=== PATIENT | female | born 1975 | race Caucasian/White ===

== ENCOUNTER 2018-06-26 07:40 | Inpatient (IN) | payer OTHER ==
[~2018-06-26 07:40] MED LIST: DESFLURANE 15 MIN; DEXAMETHASONE 4 MG/ML 5 ML INJ
[2018-06-26] MEDS ORDERED: GLYCOPYRROLATE 0.4 MG INJ (09:40)
[2018-06-26] MEDS ORDERED: ROCURONIUM 50 MG INJ (09:40)
[2018-06-26] MEDS ORDERED: CEFAZOLIN 1 GM INJ (09:40)
[2018-06-26] MEDS ORDERED: PROPOFOL 20 ML (09:40)
[2018-06-26] MEDS ORDERED: NEOSTIGMINE 3 MG/3 ML SYRINGE (09:40)
[2018-06-26] MEDS ORDERED: MIDAZOLAM 1 MG/ML 2 ML INJ (09:42)
[2018-06-26] MEDS ORDERED: ONDANSETRON 4 MG INJ (09:42)
[2018-06-26] MEDS ORDERED: FENTAnyl 50 MCG/ML VIAL (09:42)
[2018-06-26] MEDS ORDERED: FENTAnyl 50 MCG/ML VIAL IV ×2 (10:00)
[2018-06-26] MEDS ORDERED: hydrALAzine 20 MG INJ IV (10:00)
[2018-06-26] MEDS ORDERED: OXYCODONE/ACETAMINOPHEN (5/325) TAB PO ×2 (10:00)
[2018-06-26] MEDS ORDERED: HYDROmorphONE 1 MG/5 ML IV SYRINGE IV ×2 (10:00)
[2018-06-26] MEDS ORDERED: IPRATROPIUM (NEB) 0.5 MG/2.5 ML AMP HHN (10:00)
[2018-06-26] MEDS ORDERED: MEPERIDINE 25 MG INJ IV (10:00)
[2018-06-26] MEDS ORDERED: DIPHENHYDRAMINE 50 MG INJ IV (10:00)
[2018-06-26] MEDS ORDERED: ALBUTEROL 0.083% (NEB) 2.5 MG/3 ML AMP HHN (10:00)
[2018-06-26] MEDS ORDERED: ONDANSETRON 4 MG INJ IV (10:00)
[2018-06-26] MEDS ORDERED: EPHEDrine SULFATE 50 MG/5 ML SYG IV (10:00)
[2018-06-26] MEDS ORDERED: LABETALOL HCL 20MG INJ IV (10:00)
[2018-06-26] MEDS ORDERED: TRIMETHOBENZAMIDE 100 MG/ML VIAL IM (10:00)
[2018-06-26] MEDS ORDERED: METOCLOPRAMIDE 10 MG INJ (10:23)
[2018-06-26] MEDS: MIDAZOLAM 1 MG/ML 2 ML INJ IV (10:25)
[2018-06-26] MEDS: METOCLOPRAMIDE 10 MG INJ IV (10:37)
[2018-06-26] MEDS: FENTAnyl 50 MCG/ML VIAL IV (10:54)
[2018-06-26] MEDS: HYDROmorphONE 1 MG/5 ML IV SYRINGE IV ×5 (11:32→13:42)
[2018-06-26] MEDS ORDERED: NACL 0.9% 3 ML SYG IV (12:00)
[2018-06-26] MEDS ORDERED: GLUCOSE GEL 15 GRAM TUBE BUCCAL (12:30)
[2018-06-26] MEDS ORDERED: GLUCOSE GEL 15 GRAM TUBE PO ×2 (12:30)
[2018-06-26] MEDS ORDERED: DEXTROSE 50% 50 ML SYRINGE IV ×2 (12:30)
[2018-06-26] MEDS ORDERED: GLUCAGON 1 MG INJ IM (12:30)
[2018-06-26 16:24] LABS: ADD MAN DIFF? NO
[2018-06-26 16:26] LABS: WHITE BLOOD COUNT 12.9 10^3/ul (4.8-10.8)
[2018-06-26 16:26] LABS: BASOPHILS % 0.2 % (0.0-2.0); HEMATOCRIT 41.1 % (37.0-47.0); HEMOGLOBIN 13.2 g/dl (12.0-16.0); LYMPHOCYTES # 1.1 10^3/ul (0.8-2.9); LYMPHOCYTES % 8.2 % (15.0-51.0); MEAN CORPUSCULAR HGB CONC 32.1 g/dl (32.0-37.0); MEAN CORPUSCULAR VOLUME 87.1 fl (82.0-101.0); MEAN PLATELET VOLUME 9.4 fl (7.4-10.4); MONOCYTE # 0.1 10^3/ul (0.3-0.9); MONOCYTES % 0.5 % (0.0-11.0); NEUTROPHIL # 11.6 10^3/ul (1.6-7.5); NEUTROPHILS % 90.6 % (39.0-77.0); PLATELET COUNT 345 10^3/UL (140-415); RED BLOOD COUNT 4.72 10^6/ul (4.20-5.40); RED CELL DISTRIBUTION WIDTH 12.5 % (11.5-14.5)
[2018-06-26] MEDS: ACCU-CHEK XX ×2 (16:32→20:33)
[2018-06-26 16:48] LABS: ALANINE AMINOTRANSFERASE 103 IU/L (13-69); ALBUMIN 3.9 g/dl (3.3-4.9); ALBUMIN/GLOBULIN RATIO 1.11; ALKALINE PHOSPHATASE 128 IU/L (42-121); ANION GAP 9 (5-13); ASPARTATE AMINO TRANSFERASE 209 IU/L (15-46); BILIRUBIN,INDIRECT 1.5 mg/dl (0-1.1); BILIRUBIN,TOTAL 1.5 mg/dl (0.2-1.3); BLOOD UREA NITROGEN 14 mg/dl (7-20); CARBON DIOXIDE 24 mmol/L (21-31); CHLORIDE 107 mmol/L (97-110); CREATININE 0.62 mg/dl (0.44-1.00); Estimated GFR > 60 mL/min (>60); GLUCOSE 163 mg/dl (70-220); POTASSIUM 4.3 mmol/L (3.5-5.1); SODIUM 140 mmol/L (135-144); TOTAL PROTEIN 7.4 g/dl (6.1-8.1)
[2018-06-26] MEDS: LEVETIRACETAM 500 MG TAB PO (20:32)
[2018-06-27 06:34] LABS: HEMOGLOBIN A1C 5.8 % (0-5.9)
[2018-06-27] MEDS: morphine 4 MG/ML VIAL IV ×2 (07:36→12:47)
[2018-06-27] MEDS: ACCU-CHEK XX ×3 (08:20→17:19)
[2018-06-27] MEDS: metFORMIN 500 MG TAB PO (08:48)
[2018-06-27] MEDS: LEVETIRACETAM 500 MG TAB PO (08:49)
[2018-06-27] MEDS: LISINOPRIL 20 MG TAB PO (08:49)
== END 2018-06-27 17:24 | disposition home or self-care (01) | DRG 101 ==
LOC: GIL 07:40 → SDS 07:40 → GIL 11:55 → REC 11:56 → TEL 15:18
PROVIDERS: Internal Medicine Gastroenterology
PROC: 0FPB8DZ Removal of Intraluminal Device from Hepatobiliary Duct, Via Natural or Artificial Opening Endoscopic (ICD-10-PCS; principal; 2018-06-26 09:36)
DX: G40.909 Epilepsy, unspecified, not intractable, without status epilepticus (principal); I10 Essential (primary) hypertension; E11.9 Type 2 diabetes mellitus without complications; E88.81 Metabolic syndrome and other insulin resistance; Z46.89 Encounter for fitting and adjustment of other specified devices; Z87.19 Personal history of other diseases of the digestive system
CPT/HCPCS: 70450; 74330; 80053; 82962; 83036; 85025

== ENCOUNTER 2018-11-13 09:36 | Inpatient (IN) | payer OTHER ==
[2018-11-13] MEDS: LIDOCAINE 4% SOLUTION 50 ML BTL (11:15)
[2018-11-13] MEDS: FENTAnyl 50 MCG/ML VIAL (12:38)
[2018-11-13] MEDS: MIDAZOLAM 1 MG/ML 2 ML INJ ×2 (12:38)
[2018-11-13] MEDS ORDERED: NACL 0.9% 3 ML SYG IV (14:30)
[2018-11-13] MEDS ORDERED: ZOLPIDEM 5 MG TAB PO (14:30)
[2018-11-13] MEDS ORDERED: DOCUSATE SODIUM 100 MG CAP PO (14:30)
[2018-11-13] MEDS ORDERED: MAGNESIUM HYDROXIDE 30ML CUP PO (14:30)
[2018-11-13] MEDS: NS + KCL 20 MEQ 1,000 ML IV (14:49)
[2018-11-13] MEDS: LEVETIRACETAM 1500 MG (PMX) 100 ML IVPB ×2 (15:07→22:28)
[2018-11-13] MEDS ORDERED: MIDAZOLAM 1 MG/ML 2 ML INJ (15:08)
[2018-11-13] MEDS: DEXTROSE 50% 50 ML SYRINGE IV (15:23)
[2018-11-13 15:42] LABS: ADD MAN DIFF? NO
[2018-11-13 15:43] LABS: BASOPHILS % 0.1 % (0.0-2.0); EOSINOPHILS # 0.3 10^3/ul (0.0-0.5); EOSINOPHILS % 4.9 % (0.0-7.0); HEMATOCRIT 39.3 % (37.0-47.0); HEMOGLOBIN 12.6 g/dl (12.0-16.0); LYMPHOCYTES % 42.6 % (15.0-51.0); MEAN CORPUSCULAR HEMOGLOBIN 28.1 pg (29.0-33.0); MEAN CORPUSCULAR HGB CONC 32.1 g/dl (32.0-37.0); MEAN CORPUSCULAR VOLUME 87.5 fl (82.0-101.0); MEAN PLATELET VOLUME 9.3 fl (7.4-10.4); MONOCYTE # 0.7 10^3/ul (0.3-0.9); MONOCYTES % 9.7 % (0.0-11.0); NEUTROPHILS % 42.4 % (39.0-77.0); PLATELET COUNT 261 10^3/UL (140-415); RED BLOOD COUNT 4.49 10^6/ul (4.20-5.40)
[2018-11-13 16:05] LABS: ALANINE AMINOTRANSFERASE 25 IU/L (13-69); ALBUMIN 3.2 g/dl (3.3-4.9); ALKALINE PHOSPHATASE 86 IU/L (42-121); ANION GAP 6 (5-13); ASPARTATE AMINO TRANSFERASE 22 IU/L (15-46); BLOOD UREA NITROGEN 18 mg/dl (7-20); CARBON DIOXIDE 24 mmol/L (21-31); CHLORIDE 108 mmol/L (97-110); CREATININE 0.44 mg/dl (0.44-1.00); Estimated GFR > 60 mL/min (>60); GLUCOSE 264 mg/dl (70-220); MAGNESIUM 1.8 mg/dl (1.7-2.5); PHOSPHORUS 3.4 mg/dl (2.5-4.9); POTASSIUM 3.7 mmol/L (3.5-5.1); SODIUM 138 mmol/L (135-144); TOTAL PROTEIN 6.4 g/dl (6.1-8.1)
[2018-11-13] MEDS: LORAZEPAM 2 MG INJ IV (16:10)
[2018-11-13 17:14] LABS: HEMOGLOBIN A1C 5.6 % (0-5.9)
[2018-11-13] MEDS ORDERED: GLUCOSE GEL 15 GRAM TUBE BUCCAL (17:30)
[2018-11-13] MEDS ORDERED: GLUCAGON 1 MG INJ IM (17:30)
[2018-11-13] MEDS ORDERED: DEXTROSE 50% 50 ML SYRINGE IV ×2 (17:30)
[2018-11-13] MEDS ORDERED: GLUCOSE GEL 15 GRAM TUBE PO ×2 (17:30)
[2018-11-13] MEDS: INSULIN ASPART [NOVOLOG] 3 ML PEN SC ×2 (17:57→20:10)
[2018-11-13] MEDS: ACCU-CHEK XX (20:10)
[2018-11-13] MEDS: HYDROCODONE/APAP (5/325) TAB PO (22:42)
[2018-11-14] MEDS: LORAZEPAM 2 MG INJ IV ×4 (00:15→13:25)
[2018-11-14] MEDS: PHENYTOIN 100 MG CAP PO (00:27)
[2018-11-14] MEDS: NS + KCL 20 MEQ 1,000 ML IV ×2 (00:28→10:47)
[2018-11-14] MEDS: HYDROmorphONE 0.5 MG/0.5 ML SYG IV ×2 (01:04→06:49)
[2018-11-14] MEDS: ONDANSETRON 4 MG INJ IV (01:07)
[2018-11-14] MEDS: ACCU-CHEK XX ×3 (01:14→14:00)
[2018-11-14] MEDS: INSULIN ASPART [NOVOLOG] 3 ML PEN SC ×2 (07:58→12:00)
[2018-11-14] MEDS: metFORMIN 500 MG TAB GTB (07:59)
[2018-11-14] MEDS: LEVETIRACETAM 1500 MG (PMX) 100 ML IVPB (08:03)
[2018-11-14] MEDS: PHENYTOIN 1,000 MG in SOD CHLORIDE 0.9% 100 ML IV (12:48)
[2018-11-14] MEDS: ACETAMINOPHEN 325 MG TAB PO (13:42)
[2018-11-14 16:42] LABS: PHENYTOIN (DILANTIN) 10.3 ug/ml (10.0-20.0)
[2018-11-14] MEDS ORDERED: PHENYTOIN 100 MG INJ IV (22:00)
[2018-11-17 17:17] LABS: LEVETIRACETAM 52.9 mcg/mL (12.0-46.0)
== END 2018-11-14 15:58 | disposition left against medical advice (07) | DRG 101 ==
LOC: GIL 09:36 → SDS 09:36 → GIL 09:36 → 6WM 14:08 → GIL 15:42 → 6WM 15:42 → GIL 14:23 → 6WM 14:23
PROVIDERS: Internal Medicine Gastroenterology
PROC: 0DB58ZX Excision of Esophagus, Via Natural or Artificial Opening Endoscopic, Diagnostic (ICD-10-PCS; principal; 2018-11-13 09:43)
PROC: 0DB68ZX Excision of Stomach, Via Natural or Artificial Opening Endoscopic, Diagnostic (ICD-10-PCS; 2018-11-13 09:43)
DX: G40.409 Other generalized epilepsy and epileptic syndromes, not intractable, without status epilepticus (principal); K29.70 Gastritis, unspecified, without bleeding; K20.9 Esophagitis, unspecified; E66.01 Morbid (severe) obesity due to excess calories; Z68.34 Body mass index [BMI] 34.0-34.9, adult; E88.81 Metabolic syndrome and other insulin resistance; I10 Essential (primary) hypertension; Z98.84 Bariatric surgery status
CPT/HCPCS: 70450; 80053; 80177; 80185; 82962; 83036; 83735; 84100; 84703; 85025; 88305; 88312; 88313